=== PATIENT | female | born 1935 | race Caucasian/White ===

== ENCOUNTER 2016-04-10 12:17 | Observation (INO) | payer MEDICARE, BC ==
[2016-04-10] MEDS ORDERED: IPRATROPIUM/ALBUTEROL (0.5MG/3MG) NEB INH ONE (12:21)
--- NOTE | 2016-04-10 12:25 | Emergency Department Record ---
History of Present Illness - General Chief Complaint: Shortness of breath Stated Complaint: SOB Time Seen by Provider: 04/10/16 12:24 Source: Patient Mode of Arrival: Ambulatory Limitations: No limitations - History of Present Illness Initial Comments: The patient is here due to a 5 day hx of mild cough and worsening SOB. She denies any CP, back pain or pleuritic pain. The patient's daughter states the patient had pneumonia a few weeks ago and was treated for pneumonia by her PCP. She was doing better but then became worse 5 days ago. Her breathing is labored with walking and coughing. There has been no reported fever, chills, vomiting or diarrhea. MD Complaint: Shortness of breath Onset/Timin -: Days(s) Severity: Moderate Consistency: Constant Improves With: Nothing Worsens With: Nothing Known History Of: Recurrent pneumonia Associated Symptoms: Other Treatments Prior to Arrival: Other - Related Data Home Oxygen Therapy: No Home Medications Medication Instructions Recorded Confirmed Last Taken Atorvastatin Calcium [Lipitor] 10 mg PO DAILY 01/19/14 04/10/16 01/19/14 Donepezil HCl [Donepezil HCl] 10 mg PO QHS 01/19/14 04/10/16 01/19/14 Folic Acid [Folic Acid] 1 mg PO QHS 01/19/14 04/10/16 01/18/14 Memantine HCl [Namenda Xr] 28 mg PO QHS 01/19/14 04/10/16 01/18/14 Aspirin [Adult Low Dose Aspirin EC] 81 mg PO DAILY 04/10/16 04/10/16 Unknown Cholecalciferol (Vitamin D3) 2,000 unit PO DAILY 04/10/16 04/10/16 Unknown [Vitamin D3] Tiotropium [place] [Spiriva] 1 cap IH DAILY 04/10/16 04/10/16 Unknown Allergies Allergy/AdvReac Type Severity Reaction Status Date / Time No Known Drug Allergies Allergy Verified 04/10/16 12:25 Travel Screening - Travel/Exposure Within Last 30 Days Have you traveled within the last 30 days?: No Review of Systems Constitutional: Denies: Chills, Fever Eyes: Denies: Eye discharge ENT: Denies: Congestion Respiratory: Reports: Cough, Dyspnea Cardiovascular: Denies: Arrhythmia, Chest pain Endocrine: Reports: Fatigue Gastrointestinal: Denies: Diarrhea, Vomiting Genitourinary: Denies: Dysuria Musculoskeletal: Denies: Back pain Skin: Denies: Bruising Past Medical History - SOCIAL HISTORY Smoking Status: Former smoker - RESPIRATORY Hx Respiratory Disorders: No - CARDIOVASCULAR Hx Cardio Disorders: Yes Hx Hypertension: Yes - NEURO Hx Neuro Disorders: Yes Hx CVA: Yes Hx Dementia: Yes - GI Hx GI Disorders: No - Hx Genitourinary Disorders: No - ENDOCRINE Hx Endocrine Disorders: No - MUSCULOSKELETAL Hx Musculoskeletal Disorders: No - PSYCH Hx Psych Problems: Yes Hx Behavior Problems: Yes - HEMATOLOGY/ONCOLOGY Hx Hematology/Oncology Disorders: No Physical Exam - General General Appearance: Alert, Cooperative, No acute distress - Head Head exam: Atraumatic, Normocephalic, Normal inspection - Eye Eye exam: Normal appearance, PERRL - ENT Throat exam: Normal inspection. negative: Tonsillar erythema, Tonsillar exudate - Neck Neck exam: Normal inspection, Full ROM. negative: Tenderness - Respiratory Respiratory exam: Decreased breath sounds, Rhonchi (at the bases.). negative: Normal lung sounds bilaterally - Cardiovascular Cardiovascular Exam: Regular rate, Normal rhythm, Normal heart sounds - GI/Abdominal GI/Abdominal exam: Soft, Normal bowel sounds. negative: Tenderness - Extremities Extremities exam: Normal inspection, Full ROM, Normal capillary refill. negative: Tenderness - Neurological Neurological exam: Normal gait. negative: Abnormal gait, Motor sensory deficit Course Vital Signs 04/10/16 12:19 Temperature 98.0 F Pulse Rate 82 Respiratory 20 Rate Blood Pressure 182/86 Pulse Ox 86 L - Reevaluation(s) Reevaluation #1: The patient is doing better but is still winded with walking. Her O2 sats due dip to 89-90% with ambulation and the patient became winded with just walking a short distance. On exam her lungs do have mild to moderate wheezes. Due to that fact we will admit the patient overnight for OBS. I did discuss the case with Dr. Barrios and he accepts the admission. 04/10/16 14:21 Medical Decision Making - Data Complexity MDM Data: Labs Ordered and/or Reviewed, X-Ray Ordered and/or Reviewed, EKG Ordered and/or Reviewed - Lab Data Result diagrams: 04/10/16 12:32 04/10/16 12:32 - EKG Data -: EKG Interpreted by Me (NSR at 77, Nonspecific T changes anterior leads.) - Radiology Data Radiology results: Report reviewed (CXR: Neg per Rad.) Disposition Disposition: Admit Clinical Impression: Obstructive Chronic Bronchitis With Exacerbation Disposition: Still a Patient at [facility] Decision to Admit: Admit from ER Decision to Admit Date: 04/10/16 Decision to Admit Time: 14:29 Accepting Physician: Sophie Time Discussed w/Accepting Physician: 14:29 Condition: (2) Stable Forms: Patient Portal Access Time of Disposition: 14:29
[2016-04-10] MEDS ORDERED: LEVALBUTEROL HCL 1.25 MG/3 ML INH ONE ×2 (12:28→13:12)
[2016-04-10] MEDS ORDERED: METHYLPREDNISOLONE PF 125MG/VIAL IVP ONE (12:39)
[2016-04-10 12:46] LABS: BASO % 0.4 % (0-6); EOS % 1.6 % (0-6); GRAN % 67.5 % (47-80); HEMATOCRIT 44.5 % (35.0-47.0); HEMOGLOBIN 14.5 gm/dl (11.6-16.0); LYMPH % 23.2 % (16-45); MEAN CELL VOLUME 94.5 fl (81-97); MEAN CORPUSCULAR HEMOGLOBIN 30.8 pg (27-33); MEAN CORPUSCULAR HGB CONC 32.6 g/dl (32-36); MEAN PLATELET VOLUME 9.6 fl (7.4-10.4); MONO % 7.3 % (0-9); PLATELET COUNT 243 K/uL (130-400); RED BLOOD COUNT 4.71 M/uL (3.80-5.40); RED CELL DISTRIBUTION WIDTH 12.4 % (11.5-14.5); WHITE BLOOD COUNT W/O DIFF 7.7 K/uL (4.2-12.2)
[2016-04-10 12:57] LABS: ANION GAP 15.7 (7-16); BLOOD UREA NITROGEN 14 mg/dL (7-17); CARBON DIOXIDE 27.3 mmol/L (22-30); CREATINE PHOSPHOKINASE 44 U/L (30-135); CREATININE 0.7 mg/dL (0.52-1.04); EST GLOMERULAR FILTRATION RATE > 60 ml/min; GLUCOSE,RANDOM 108 mg/dL (70-110)
[2016-04-10 12:59] LABS: INR 0.98; PARTIAL THROMBOPLASTIN TIME 24.9 SECONDS (24.5-39.1); PROTHROMBIN TIME (PATIENT) 11.1 SECONDS (9.5-12.1)
[2016-04-10 13:10] LABS: CKMB 1.2 ug/L (0-6); TROPONIN I < 0.012 ng/mL (0.00-0.034)
[2016-04-10] MEDS ORDERED: AZITHROMYCIN 500 MG in 0.9 % SODIUM CHLORIDE 250ML 250 ML IVPB ONE (14:27)
[2016-04-10] MEDS ORDERED: IPRATROPIUM/ALBUTEROL (0.5MG/3MG) NEB INH PRN (16:25)
[2016-04-10] MEDS ORDERED: ACETAMINOPHEN 500 MG TABLET PO PRN (16:25)
[2016-04-10] MEDS ORDERED: FOLIC ACID 1 MG TABLET PO SCH (22:00)
[2016-04-10] MEDS ORDERED: Non-Formulary MISC (Donepezil Hcl [Donepezil Hcl] 10 MG) PO SCH (22:00)
[2016-04-10] MEDS ORDERED: MEMANTINE HCL 28 MG PO SCH (22:00)
[2016-04-10] MEDS: Non-Formulary MISC (Atorvastatin Calcium [Lipitor] 10 MG) PO SCH (22:26)
--- NOTE | 2016-04-11 08:49 | History and Physical Report ---
DATE OF DICTATION: 04/10/2016 at 5:38 p.m. CHIEF COMPLAINT: Dyspnea. HISTORY OF PRESENT ILLNESS: This 80-year-old female presented to the emergency department and was evaluated by Dr. Yoder. She was admitted to the hospital because of dyspnea and exacerbation of chronic obstructive pulmonary disease. Chest x-ray was negative. She had some low pulse oximetry measurements when she first came into the emergency department of 89 to 90. It also dropped down to 89 to 90 when ambulating on room air in the emergency department. Dr. Yoder was uncomfortable sending her home at that point. PAST MEDICAL HISTORY: The patient has a history of chronic obstructive pulmonary disease. She stopped smoking many years ago. She also has a history of Alzheimer's type dementia, hypercholesterolemia. She also has hypertension, transient ischemic attack, cerebrovascular accident. PAST SURGICAL HISTORY: Breast biopsy. MEDICATIONS ON ADMISSION: Spiriva one capsule daily, Vitamin D3 2,000 units daily, aspirin 81 mg q. daily, Namenda XR 28 mg q. daily, folic acid one q. daily, Aricept 10 mg at h.s., and Lipitor 10 mg q. daily. ALLERGIES: No known drug allergies. FAMILY/PSYCHOSOCIAL HISTORY: Unremarkable. REVIEW OF SYSTEMS: HEENT: She has some congestion and coughing which has been worse over the last two to three days. Cardiovascular: No chest pain, palpitations, or arrhythmias. Respiratory: She has a cough and is short of breath. Some wheezing. Gastrointestinal: No nausea, vomiting, diarrhea, black stools, or bloody stools. Genitourinary: No dysuria, hematuria, frequency, or burning on urination. Musculoskeletal: No joint or bone abnormalities, but she has diffuse arthritis. If I specifically ask her about a certain joint, she will complain about pain in the joint. Neurologic: Previous cerebrovascular accident and transient ischemic attack but no residual paralysis. Endocrine: No diabetes or thyroid disease. Integument: No rash, ulcers, changing moles, or yellow skin. PHYSICAL EXAMINATION: General: Height is 5 feet, 4 inches. Weight is 119 pounds. Vital Signs: Temperature is 99.0, pulse is 86, blood pressure is 120/66, pulse oximetry is 97% on two liters per nasal cannula. Her respiratory rate is 18. HEENT: Pupils are equal, round, and reactive to light and accommodation. Extraocular muscles are intact. The throat is clear. The nose is clear. The tympanic membranes are garay. Neck: The neck is supple. No jugular venous distension. No hepatojugular reflex. No carotid bruit. The thyroid is smooth. Cardiovascular: Regular rate and rhythm without murmurs, clicks, rubs, or gallops. Respiratory: Clear to auscultation and percussion. There is some scant wheezing bilaterally, but she is content on two liters of 02. Abdomen: Soft and nontender. No hepatosplenomegaly. No masses. No tenderness. Bowel sounds are active. No bruit. Extremities: No pitting edema. No cyanosis. No clubbing. Full range of motion. Peripheral pulses are good. Breasts, Gynecological, and Rectal Examinations: Deferred. Neurological Examination: Cranial nerves II through XII are intact. No gross defect. Sensation is normal. Strength is normal. Deep tendon reflexes are equal bilaterally. Babinski is negative. Mental Status: She is alert but oriented to person only; not place or time. IMPRESSIONS: 1. Acute bronchitis. 2. Acute exacerbation of chronic obstructive pulmonary disease. 3. Alzheimer's type dementia. 4. Hypercholesterolemia. 5. A history of hypertension, but she is no longer on hypertensive medications. PLAN: Intravenous azithromycin once a day. DuoNeb treatments q. four hours while awake and p.r.n. Continue her home medications. Solu Medrol 60 mg intravenous q. daily. Julio C Barrios D.O. Date Time JOB NUMBER: [id number] MTDD
--- NOTE | 2016-04-11 09:15 | RADIOLOGY REPORT ---
EXAM: CHEST, TWO VIEWS HISTORY: SHORTNESS OF BREATH, PNEUMONIA THREE WEEKS AGO. TECHNIQUE: Two views of the chest were obtained. Comparison: Chest x-ray 07/07/08. FINDINGS: The lungs are clear. The cardiomediastinal silhouette is not enlarged. Chronic elevation of the right hemidiaphragm. The osseous structures are unremarkable. IMPRESSION: NO ACUTE INTRATHORACIC PROCESS. JOB NUMBER: [id number] MTDD
[2016-04-11 09:27] LABS: CKMB 2.1 ug/L (0-6)
[2016-04-11 09:31] LABS: TROPONIN I < 0.012 ng/mL (0.00-0.034)
--- NOTE | 2016-04-11 09:44 | Discharge Note ---
Discharge Note - Date Date of Discharge Note: 04/11/16 Disposition: Home, Self-Care Condition: (1) Good Additional Instructions: follow up with Dr. Silver in 3-5 days Prescriptions: Albuterol Sulfate [Proair Hfa] 1 - 2 puff IH .EVERY 4-6 HOURS PRN #1 inhaler PRN Reason: Difficulty In Breathing Azithromycin [Zithromax] 250 mg PO DAILY #6 tab Forms: Patient Portal Access
[2016-04-11] MEDS: Non-Formulary MISC (Atorvastatin Calcium [Lipitor] 10 MG) PO SCH (09:54)
[2016-04-11] MEDS ORDERED: METHYLPREDNISOLONE PF 125MG/VIAL IVP SCH (10:00)
[2016-04-11] MEDS ORDERED: ASPIRIN 81 MG TABEC PO SCH (10:00)
--- NOTE | 2016-04-11 11:23 | Discharge Summary ---
DATE OF DISCHARGE: 04/11/2015. DISCHARGE DIAGNOSES: 1. Acute bronchitis. 2. Acute exacerbation of chronic obstructive pulmonary disease. 3. Alzheimer's type dementia. 4. Hypercholesterolemia. 5. Hypertension, but she is no longer on hypertensive medication. ATTENDING PHYSICIAN: Julio C Barrios D.O. REASON FOR HOSPITALIZATION: Dyspnea. HISTORY OF THE PRESENT ILLNESS: This 80-year-old female presented to the emergency department. She was evaluated by Dr. Yoder and was admitted to the hospital because of dyspnea and exacerbation of chronic obstructive pulmonary disease. Chest x-ray was negative. There was one reading with a low pulse oximetry initially when she came into the emergency room at 89 to 90. Currently she has had normal pulse oximetry readings since the admission and has not required any breathing treatments at all since admission from the emergency department. She was placed in the hospital for further evaluation. The patient had an episode of confusion because of her dementia during the night. Nursing had a hard time with that. However, she settled down after she woke up. SIGNIFICANT FINDINGS: Chest x-ray was negative. LABORATORY DATA: White blood cell count was 7,700, hemoglobin was 14.5. She had two sets of cardiac enzymes which were negative. Potassium was 4.4. DIAGNOSTIC DATA: EKG showed no acute changes. THERAPY PROVIDED: She had one dose of azithromycin intravenous, Solu Medrol 125 , and oxygen therapy. Breathing treatments were ordered, but she did not require any. The admission was changed to an observation admission, and she was sent home to follow up with Dr. Silver. DISCHARGE INSTRUCTIONS: 1. Follow up with Dr. Silver in three to five days. 2. Albuterol two puffs q. four hours p.r.n. 3. Z-Roberto Carlos one a day. She already had the loading dose in the hospital. 4. Continue her home medications including: Spiriva once a day, Vitamin D3 2, 000 units daily, aspirin 81 mg q. daily, Namenda XR 28 mg q. daily, folic acid one a day, Aricept 10 mg q. daily, and Lipitor 10 mg q. daily. Julio C A Sophie, D.O. Date Time JOB NUMBER: [id number] cc: Nilda Clarke
[2016-04-11] MEDS ORDERED: AZITHROMYCIN 250 MG in 0.9 % SODIUM CHLORIDE 250ML 250 ML IVPB SCH (14:45)
[2016-04-11] MEDS ORDERED: DONEPEZIL HCL 5 MG TABLET PO SCH (22:00)
== END 2016-04-11 11:10 | disposition home or self-care (01) ==
LOC: ER 12:17 → MEDSURG 14:57 → INTOOBSV 15:00
PROVIDERS: ADMIT Emergency Medicine; ATTEND Emergency Medicine
DX: J44.0 Chronic obstructive pulmonary disease with (acute) lower respiratory infection (principal); G30.9 Alzheimer's disease, unspecified; F02.80 Dementia in other diseases classified elsewhere, unspecified severity, without behavioral disturbance, psychotic disturbance, mood disturbance, and anxiety; E78.00 Pure hypercholesterolemia, unspecified
CPT/HCPCS: 99285 ×2; 94760 ×2; 96365; 96375; 82550; 85025; 85730; 85610; 82553 ×2; 84484 ×2; 80048; 83880; 71020; 94640 ×2; 94761; 93005; 93010; G0378 ×2; 99217; 99220; J0456; J2930; J7050

== ENCOUNTER 2016-06-16 11:30 | Inpatient (IN) | payer MEDICARE, BC ==
[2016-06-16] MEDS ORDERED: IPRATROPIUM/ALBUTEROL (0.5MG/3MG) NEB INH ONE ×2 (11:53→11:54)
[2016-06-16] MEDS ORDERED: METHYLPREDNISOLONE PF 125MG/VIAL IVP SCH (12:00)
--- NOTE | 2016-06-16 12:01 | Emergency Department Record ---
History of Present Illness - General Chief Complaint: Shortness of breath Stated Complaint: COUGH,SOB Time Seen by Provider: 06/16/16 11:42 Source: Patient, Family Mode of Arrival: Wheelchair Limitations: No limitations - History of Present Illness Initial Comments: 81 yo female with a prior history of COPD and pneumonia presents with a cough since last . The cough is non productive. She was waiting to see her doctor on Thursday but he was unable to get an appointment. She has been short of breath with activity. No nausea, vomiting or diarrhea. She reports that she was admitted in March with similar symptoms. She is a former smoker who quit many years ago. MD Complaint: Cough Onset/Timin -: Days(s) Severity: Moderate Consistency: Intermittent Improves With: Medication Worsens With: Exertion Known History Of: COPD, Other Context: Recent illness, Recent URI Associated Symptoms: Cough, Sputum production Treatment Prior to Arrival Comment:: Spiriva, Proair - Related Data Home Oxygen Therapy: No Home Medications Medication Instructions Recorded Confirmed Last Taken Atorvastatin Calcium [Lipitor] 10 mg PO DAILY 01/19/14 06/16/16 04/09/16 Donepezil HCl 10 mg PO QHS 01/19/14 06/16/16 04/09/16 Folic Acid 1 mg PO QHS 01/19/14 06/16/16 04/09/16 Memantine HCl [Namenda Xr] 28 mg PO QHS 01/19/14 06/16/16 04/09/16 Aspirin [Adult Low Dose Aspirin EC] 81 mg PO DAILY 04/10/16 06/16/16 04/10/16 Cholecalciferol (Vitamin D3) 2,000 unit PO DAILY 04/10/16 06/16/16 04/10/16 [Vitamin D3] Tiotropium [place] [Spiriva] 1 cap IH DAILY 04/10/16 06/16/16 06/15/16 11:00 Previous Rx's Medication Instructions Recorded Albuterol Sulfate [Proair Hfa] 1 - 2 puff IH .EVERY 4-6 HOURS PRN 04/11/16 #1 inhaler Allergies Allergy/AdvReac Type Severity Reaction Status Date / Time No Known Drug Allergies Allergy Verified 06/16/16 11:39 Travel Screening - Travel/Exposure Within Last 30 Days Have you traveled within the last 30 days?: No Review of Systems Constitutional: Reports: Chills, Fever, Malaise Eyes: Denies: Eye discharge, Eye pain, Photophobia, Vision change ENT: Denies: Congestion Respiratory: Reports: Cough, Wheezes Cardiovascular: Denies: Chest pain, Palpitations, Syncope Endocrine: Denies: Fatigue, Polydipsia, Polyuria Gastrointestinal: Denies: Abdominal pain, Diarrhea, Nausea, Vomiting Genitourinary: Denies: Dyspareunia, Dysuria, Urgency Musculoskeletal: Denies: Arthralgia, Back pain, Joint swelling, Myalgia, Neck pain Skin: Denies: Bruising, Change in color, Rash Neurological: Denies: Confusion, Headache Psychiatric: Denies: Anxiety Hematological/Lymphatic: Denies: Blood Clots, Easy bleeding, Easy bruising, Swollen glands Past Medical History - SOCIAL HISTORY Smoking Status: Former smoker Alcohol Use: None Drug Use: None - RESPIRATORY Hx Respiratory Disorders: No Hx Bronchitis: Yes Hx COPD: Yes Hx Pneumonia: Yes - CARDIOVASCULAR Hx Cardio Disorders: Yes Hx Hypertension: Yes - NEURO Hx Neuro Disorders: Yes Hx CVA: Yes Hx Dementia: Yes - GI Hx GI Disorders: No - Hx Genitourinary Disorders: No - ENDOCRINE Hx Endocrine Disorders: No - MUSCULOSKELETAL Hx Musculoskeletal Disorders: No - PSYCH Hx Psych Problems: Yes Hx Behavior Problems: Yes - HEMATOLOGY/ONCOLOGY Hx Hematology/Oncology Disorders: No Family Medical History Any Significant Family History?: No Physical Exam - General General Appearance: Alert, Oriented x3, Cooperative, Mild distress (mildly labored breathing) Limitations: No limitations - Head Head exam: Normal inspection - Eye Eye exam: Normal appearance, PERRL. negative: Conjunctival injection - ENT ENT exam: Normal exam, Mucous membranes moist Ear exam: Normal external inspection Nasal Exam: Normal inspection Mouth exam: Normal external inspection Teeth exam: Normal inspection Throat exam: Normal inspection - Neck Neck exam: Normal inspection, Full ROM. negative: Tenderness - Respiratory Respiratory exam: Decreased breath sounds, Prolonged expiratory, Rhonchi, Wheezes. negative: Respiratory distress - Cardiovascular Cardiovascular Exam: Regular rate, Normal rhythm, Normal heart sounds - GI/Abdominal GI/Abdominal exam: Soft. negative: Distended, Tenderness - Rectal Rectal exam: Deferred - exam: Deferred - Extremities Extremities exam: Normal inspection, Full ROM, Normal capillary refill. negative: Tenderness - Back Back exam: Reports: Normal inspection, Full ROM. Denies: CVA tenderness (R), CVA tenderness (L), Muscle spasm, Paraspinal tenderness, Rash noted, Tenderness , Vertebral tenderness - Neurological Neurological exam: Alert, Normal gait, Oriented X3 - Psychiatric Psychiatric exam: Normal affect, Normal mood - Skin Skin exam: Dry, Intact, Normal color, Warm Course Vital Signs 06/16/16 06/16/16 11:31 11:49 Temperature 98.8 F Pulse Rate 88 Pulse Rate [ 87 Tablet Technician ] Respiratory 48 H 26 H Rate Blood Pressure 124/72 Pulse Ox 83 L 97 - Reevaluation(s) Reevaluation #1: The labs were reviewed The patient is Influenza B positive She will be given Tamiflu 06/16/16 12:53 Reevaluation #2: The CXR is negative for acute process Due to her hypoxia from the Influenza B and her underlying COPD she will be admitted for supportive respiratory care and monitoring. 06/16/16 13:12 Medical Decision Making - Lab Data Result diagrams: 06/16/16 11:50 06/16/16 11:50 Disposition Disposition: Admit Clinical Impression: COPD exacerbation, Influenza due to influenza virus, type B, Hypoxia Disposition: Still a Patient at [facility] Decision to Admit: Admit from ER Decision to Admit Date: 06/16/16 Decision to Admit Time: 13:16 Condition: (2) Stable Forms: Patient Portal Access Time of Disposition: 13:16
[2016-06-16 12:32] LABS: BASO % 0.2 % (0-6); GRAN % 75.7 % (47-80); HEMATOCRIT 42.2 % (35.0-47.0); HEMOGLOBIN 13.8 gm/dl (11.6-16.0); MEAN CELL VOLUME 95.7 fl (81-97); MEAN CORPUSCULAR HEMOGLOBIN 31.3 pg (27-33); MEAN CORPUSCULAR HGB CONC 32.7 g/dl (32-36); MEAN PLATELET VOLUME 10.2 fl (7.4-10.4); MONO % 14.1 % (0-9); PLATELET COUNT 162 K/uL (130-400); RED BLOOD COUNT 4.41 M/uL (3.80-5.40); RED CELL DISTRIBUTION WIDTH 12.8 % (11.5-14.5); WHITE BLOOD COUNT W/O DIFF 5.2 K/uL (4.2-12.2)
[2016-06-16 12:43] LABS: ALB/GLOB RATIO 1.4 (1.1-1.8); ALBUMIN 4.3 gm/dL (3.5-5.0); ANION GAP 9.6 (7-16); BILIRUBIN,TOTAL 0.31 mg/dL (0.2-1.3); CARBON DIOXIDE 29.4 mmol/L (22-30); TOTAL PROTEIN 7.4 gm/dL (6.3-8.2)
[2016-06-16 12:45] LABS: INFLUENZA A NEGATIVE (NEGATIVE); INFLUENZA B POSITIVE (NEGATIVE)
[2016-06-16] MEDS ORDERED: OSTELTAMIVIR 75 MG CAP PO ONE (12:53)
[2016-06-16 12:55] LABS: TROPONIN I 0.028 ng/mL (0.00-0.034)
[2016-06-16] MEDS ORDERED: ACETAMINOPHEN 500 MG TABLET PO ONE (13:42)
[2016-06-16] MEDS ORDERED: IPRATROPIUM/ALBUTEROL (0.5MG/3MG) NEB INH SCH (14:23)
[2016-06-16] MEDS ORDERED: ALBUTEROL SULFATE (0.083%) 2.5 MG/3 ML NEB INH PRN (14:23)
[2016-06-16] MEDS ORDERED: 0.9 % SODIUM CHLORIDE 1000ML 1,000 ML IV PRN (14:23)
[2016-06-16] MEDS ORDERED: ACETAMINOPHEN 500 MG TABLET PO PRN (14:23)
[2016-06-16] MEDS ORDERED: PNEUM 13-VAL/PF 0.5 ML IM ONE (14:49)
[2016-06-16] MEDS: IPRATROPIUM/ALBUTEROL (0.5MG/3MG) NEB INH SCH ×3 (16:41→22:26)
--- NOTE | 2016-06-16 18:23 | History & Physical ---
History of Present Illness - Date of Service Date of Service for History & Physical: 06/16/16 - History of Present Illness Admitting Diagnosis: Influenza B, COPD, HYPOXIA History of Present Illness: 81 yo female admitted COPD exacerbation due to influenza B virus. PMHx of Alzheimer's type dementia, COPD, previous smoker (quit many years ago), high cholesterol, hypertension, TIA, CVA, and h/o PNA. History obtained from chart, patient and daughter at bedside. Per patient's daughter, patient has been experiencing a non productive cough. Onset was last . No aggravating symptoms. Alleviated by breathing treatment in the ED and supplemental O2. Associated symptoms include KINA w/ activity. Upon presentation to the ED, temp 98.8, HR 88, RR 48, BP 124/72, pulse ox 83 on RA. CBC normal. BUN 23, CE negative x1. Influenza B positive, CXR: NAP. IVF's , Duo neb treatment Q6 hours and albuterol Q1 hours ordered. Tamiflu ordered. Noting hypoxia and positive influenza B, patient admitted for further medical management. Patient sitting up in bed comfortably eating lunch with her daughter at bedside. States "i'm starving. She does not appear to be having any respiratory difficulty. +chills, fatigue. denies weakness, KINA, fever, nvd, abd pain, change in bowel habits, pain with urination, skin changes, sweating, or change in gait. Daughter denies any change in mentation. Admitted in March for COPD exacerbation. No other recent illness. no recent travel or sick contacts. Lives with her daughter here in [place]. Spiriva is on patient's medication list. Does not have a feather edger. PCP: Dr. Silver Travel Screening - Travel/Exposure Within Last 30 Days Have you traveled within the last 30 days?: No - Travel/Exposure Within Last Year Have you traveled outside the [place] in the last year?: No - Additonal Travel Details Have you been exposed to anyone with a communicable illness?: No - Travel Symptoms Symptom Screening: None Review of Systems Constitutional: Reports: Chills, Malaise. Denies: Fever Eyes: Denies: Eye discharge, Eye pain, Photophobia, Vision change ENT: Denies: Congestion Respiratory: Reports: Cough, Wheezes Cardiovascular: Denies: Chest pain, Palpitations, Syncope Endocrine: Denies: Fatigue, Polydipsia, Polyuria Gastrointestinal: Denies: Abdominal pain, Diarrhea, Nausea, Vomiting Genitourinary: Denies: Dyspareunia, Dysuria, Urgency Musculoskeletal: Denies: Arthralgia, Back pain, Joint swelling, Myalgia, Neck pain Skin: Denies: Bruising, Change in color, Rash Neurological: Denies: Confusion, Headache Psychiatric: Denies: Anxiety Hematological/Lymphatic: Denies: Blood Clots, Easy bleeding, Easy bruising, Swollen glands Past Medical History - SOCIAL HISTORY Smoking Status: Former smoker Alcohol Use: None Drug Use: None - RESPIRATORY Hx Respiratory Disorders: Yes Hx Bronchitis: Yes Hx COPD: Yes Hx Pneumonia: Yes - CARDIOVASCULAR Hx Cardio Disorders: Yes Hx Hypertension: Yes - NEURO Hx Neuro Disorders: Yes Hx CVA: Yes Hx Dementia: Yes - GI Hx GI Disorders: No - Hx Genitourinary Disorders: No - ENDOCRINE Hx Endocrine Disorders: No - MUSCULOSKELETAL Hx Musculoskeletal Disorders: No - PSYCH Hx Psych Problems: Yes Hx Anxiety: Yes Hx Behavior Problems: Yes Hx Depression: Yes - HEMATOLOGY/ONCOLOGY Hx Hematology/Oncology Disorders: No Family Medical History Any Significant Family History?: No H&P Meds/Allergies - Allergies Allergies: Allergies Allergy/AdvReac Type Severity Reaction Status Date / Time No Known Drug Allergies Allergy Verified 06/16/16 11:39 - Home Medications Home Medications Medication Instructions Recorded Confirmed Last Taken Atorvastatin Calcium [Lipitor] 10 mg PO DAILY 01/19/14 06/16/16 04/09/16 Donepezil HCl 10 mg PO QHS 01/19/14 06/16/16 04/09/16 Folic Acid 1 mg PO QHS 01/19/14 06/16/16 04/09/16 Memantine HCl [Namenda Xr] 28 mg PO QHS 01/19/14 06/16/16 04/09/16 Aspirin [Adult Low Dose Aspirin EC] 81 mg PO DAILY 04/10/16 06/16/16 04/10/16 Cholecalciferol (Vitamin D3) 2,000 unit PO DAILY 04/10/16 06/16/16 04/10/16 [Vitamin D3] Tiotropium [place] [Spiriva] 1 cap IH DAILY 04/10/16 06/16/16 06/15/16 11:00 Previous Rx's Medication Instructions Recorded Albuterol Sulfate [Proair Hfa] 1 - 2 puff IH .EVERY 4-6 HOURS PRN 04/11/16 #1 inhaler - Active Medications Active Medications: Current Medications Acetaminophen (Tylenol 500mg Tab) 1,000 mg PO Q6H PRN PRN Reason: PAIN/TEMP Albuterol Sulfate () 2.5 mg INH RESP.Q1H PRN PRN Reason: DIFFICULTY IN BREATHING Albuterol/Ipratropium (Duoneb) 3 ml INH RESP.Q6H.[facility] Last Admin: 06/16/16 16:41 Dose: 3 ml Aspirin (Ecotrin (Ec)) 81 mg PO DAILY [facility] Atorvastatin Calcium (Lipitor) 10 mg PO DAILY [facility] Oseltamivir Phosphate 30 mg/ (Marino Syrup 5 ml) 0 mg PO BID [facility] Donepezil HCl (Aricept) 10 mg PO QHS [facility] Enoxaparin Sodium (Lovenox) 40 mg SC DAILY [facility] Sodium Chloride () 1,000 mls @ 100 mls/hr IV .Q10H PRN PRN Reason: LARGE VOLUME IV Memantine (Namenda) 10 mg PO BID [facility] Methylprednisolone Sodium Succinate (Solu-Medrol) 60 mg IVP DAILY [facility] Physical Exam - Vital Signs Vital Signs: Vital Signs - Last 24 Hrs Temp Pulse Pulse Resp BP Pulse Ox 06/16/16 16:43 80 18 93 L 06/16/16 14:23 98.1 F 79 18 137/59 92 L - General General Appearance: Alert, Oriented x3, Cooperative, No acute distress Limitations: No limitations - Head Head exam: Normal inspection - Eye Eye exam: Normal appearance, PERRL. negative: Conjunctival injection - ENT ENT exam: Normal exam, Mucous membranes moist Ear exam: Normal external inspection Nasal Exam: Normal inspection Mouth exam: Normal external inspection Teeth exam: Normal inspection Throat exam: Normal inspection - Neck Neck exam: Normal inspection, Full ROM. negative: Tenderness - Respiratory Respiratory exam: Decreased breath sounds, Prolonged expiratory, Rhonchi, Wheezes. negative: Respiratory distress - Cardiovascular Cardiovascular Exam: Regular rate, Normal rhythm, Normal heart sounds - GI/Abdominal GI/Abdominal exam: Soft. negative: Distended, Tenderness - Rectal Rectal exam: Deferred - exam: Deferred - Extremities Extremities exam: Normal inspection, Full ROM, Normal capillary refill. negative: Tenderness - Back Back exam: Reports: Normal inspection, Full ROM. Denies: CVA tenderness (R), CVA tenderness (L), Muscle spasm, Paraspinal tenderness, Rash noted, Tenderness , Vertebral tenderness - Neurological Neurological exam: Alert, Normal gait, Oriented X3 - Psychiatric Psychiatric exam: Normal affect, Normal mood - Skin Skin exam: Dry, Intact, Normal color, Warm Results - Labs Result Diagrams: 06/16/16 11:50 06/16/16 11:50 VTE H&P Assessment - Risk for VTE Risk for VTE: Yes Risk Level: Moderate (age, decreased mobility) Risk Assessment Date: 06/16/16 Risk Assessment Time: 14:00 VTE Orders Placed or Will Be Placed: Yes Plan - Inpatient Certification Inpatient Certification: Admit to inpatient care: Based on my medical assessment, after consideration of patient's risk factors (age, co-morbidities and patient presenting symptoms and acuity), I expect that this patient will remain in the hospital greater than or equal to two midnights and that the services needed warrant inpatient care because: Patient Risk Factors: [hypoxia, difficulty in breathing, fever, sob w/ ambulation] Estimated length of stay: [2-3 nights] The patient may reasonably be expected to be discharged or transferred to a hospital within 96 hours after admission to [facility]. Services needed: [respiratory therapy, IVF's, respiratory medications, supplemental oxygen, monitoring] Post hospital care (if known): [home, family assistance] I certify that my determination is in accordance with my understanding of Medicare requirements for reasonable and necessary inpatient services. 06/16/16 18:54 - Detailed Diagnosis and Plan (1) COPD exacerbation Current Visit: Yes Status: Acute Base Code: J44.1 - CHRONIC OBSTRUCTIVE PULMONARY DISEASE W (ACUTE) EXACERBATION Comment: 06/16/16: 81 yo female w/ alzheimers type dementia admitted for COPD exac w/ positive influenza B. H/o COPD, previous smoker and hx of PNA. CXR NAP. WBC normal. afebrile. Oxygen saturation is 93 % on 2L's NC. - resp medications: duo neb breathing treatments Q6 hours PRN, albuterol Q 1-2 hours PRN, Tamiflu 30 mg BID, Solu medrol 60 mg IV daily (125 mg IV administered in the ED). - supplemental O2 - monitor VS's Q 8 hours. (2) Influenza B Current Visit: Yes Status: Acute Base Code: J10.1 - FLU DUE TO OTH IDENT INFLUENZA VIRUS W OTH RESP MANIFEST Comment: 06/16/16: Tamiflu 30 mg BID (GFR <60). 75 mg administered in the ED. (3) Alzheimer's dementia Current Visit: Yes Status: Acute Base Code: G30.9 - ALZHEIMER'S DISEASE, UNSPECIFIED Comment: 06/16/16: mentation at baseline per daughter. continue home medication. (4) DVT prophylaxis Current Visit: Yes Status: Acute Base Code: [id number] - Comment: 06/16/16: age, decreased mobility. lovenox 40 mg sq daily. (5) Full code status Current Visit: Yes Status: Acute Base Code: Z78.9 - OTHER SPECIFIED HEALTH STATUS Comment: 06/16/16: patient is full code
[2016-06-16] MEDS: DONEPEZIL HCL 5 MG TABLET PO SCH (21:01)
[2016-06-16] MEDS: MEMANTINE HCL 10 MG TABLET PO SCH (21:01)
[2016-06-16] MEDS: OSELTAMIVIR PHOSPHATE 30 MG, CHERRY SYRUP 5 ML PO SCH ×2 (21:02)
[2016-06-16] MEDS ORDERED: OSTELTAMIVIR 75 MG CAP PO SCH (22:00)
[2016-06-17] MEDS: IPRATROPIUM/ALBUTEROL (0.5MG/3MG) NEB INH SCH ×4 (05:32→23:00)
[2016-06-17 06:51] LABS: ANION GAP 9.2 (7-16); BLOOD UREA NITROGEN 23 mg/dL (7-17); CARBON DIOXIDE 27.8 mmol/L (22-30); CREATININE 0.9 mg/dL (0.52-1.04); EST GLOMERULAR FILTRATION RATE > 60 ml/min; GLUCOSE,RANDOM 140 mg/dL (70-110)
--- NOTE | 2016-06-17 07:33 | RADIOLOGY REPORT ---
EXAM: CHEST, TWO VIEWS HISTORY: PRODUCTIVE COUGH WITH SLIGHT CHEST PAIN AND SHORTNESS OF BREATH FOR FOUR DAYS. TECHNIQUE: Upright PA and lateral views of the chest were obtained. Comparison: Two view chest radiographic examination dated 07/07/08. FINDINGS: The heart is not enlarged and the pulmonary vasculature is nondilated. The aortic knob is atherosclerotic. Moderate elevation of the right hemidiaphragm is redemonstrated. No convincing new area of abnormally increased or decreased attenuation is noted throughout the brain substance. The previously demonstrated right basilar air space disease has cleared. No pneumothorax. There are degenerative changes of the visualized spine and shoulder girdles. IMPRESSION: MODERATE ELEVATION OF THE RIGHT HEMIDIAPHRAGM REDEMONSTRATED. NO CONVINCING EVIDENCE OF ACUTE CARDIOPULMONARY DISEASE. JOB NUMBER: [id number] [facility]
[2016-06-17] MEDS: MEMANTINE HCL 10 MG TABLET PO SCH ×2 (09:08→21:27)
[2016-06-17] MEDS: ATORVASTATIN 20 MG TABLET PO SCH (09:10)
[2016-06-17] MEDS: METHYLPREDNISOLONE PF 125MG/VIAL IVP SCH (09:11)
[2016-06-17] MEDS: ENOXAPARIN 40 MG/0.4 ML SYR SC SCH (09:11)
[2016-06-17] MEDS: ASPIRIN 81 MG TABEC PO SCH (09:11)
[2016-06-17] MEDS: OSELTAMIVIR PHOSPHATE 30 MG, CHERRY SYRUP 5 ML PO SCH ×4 (09:12→21:35)
[2016-06-17] MEDS ORDERED: METHYLPREDNISOLONE PF 125MG/VIAL IVP SCH (10:00)
[2016-06-17] MEDS: DONEPEZIL HCL 5 MG TABLET PO SCH (21:26)
--- NOTE | 2016-06-17 21:52 | Physician Progress Note ---
Subjective - Date Date of Physician Progress Note: 06/17/16 - Subjective Subjective Comment: Patient is pleasantly confused. Denies any concerns, reports is feeling "fine". Daughter in room with patient in whom she resides with, reports mentation is at baseline, does not wear oxygen at home. Feels mother is doing much better today. Objective - Vital Signs Vital Signs: Vital Signs - Last 24 Hrs Temp Pulse Pulse Resp BP BP Pulse Ox 06/17/16 18:29 90 20 92 L 06/17/16 18:00 98.5 F 88 20 127/58 92 L 06/17/16 11:37 98.7 F 112/66 06/17/16 10:00 98.1 F 90 20 122/59 92 L 06/17/16 09:00 67 20 06/17/16 06:00 98.7 F 67 20 112/66 94 L 06/17/16 05:32 92 H 22 94 L 06/16/16 22:27 60 20 91 L - General General Appearance: Alert (oriented to self and daughter only), Cooperative, No acute distress Limitations: No limitations - Head Head exam: Normal inspection - Eye Eye exam: Normal appearance, PERRL. negative: Conjunctival injection - ENT ENT exam: Normal exam, Mucous membranes moist Ear exam: Normal external inspection Nasal Exam: Normal inspection Mouth exam: Normal external inspection Teeth exam: Normal inspection Throat exam: Normal inspection - Neck Neck exam: Normal inspection, Full ROM. negative: Tenderness - Respiratory Respiratory exam: Decreased breath sounds. negative: Respiratory distress - Cardiovascular Cardiovascular Exam: Regular rate, Normal rhythm, Normal heart sounds - GI/Abdominal GI/Abdominal exam: Soft. negative: Distended, Tenderness - Rectal Rectal exam: Deferred - exam: Deferred - Extremities Extremities exam: Normal inspection, Full ROM, Normal capillary refill. negative: Tenderness - Back Back exam: Reports: Normal inspection, Full ROM. Denies: CVA tenderness (R), CVA tenderness (L), Muscle spasm, Paraspinal tenderness, Rash noted, Tenderness , Vertebral tenderness - Neurological Neurological exam: Alert, Normal gait, Oriented X3 - Psychiatric Psychiatric exam: Normal affect, Normal mood - Skin Skin exam: Dry, Intact, Normal color, Warm Assessment and Plan - Assessment and Plan (1) COPD exacerbation Current Visit: Yes Status: Acute Base Code: J44.1 - CHRONIC OBSTRUCTIVE PULMONARY DISEASE W (ACUTE) EXACERBATION Comment: 06/16/16: 81 yo female w/ alzheimers type dementia admitted for COPD exac w/ positive influenza B. H/o COPD, previous smoker and hx of PNA. CXR NAP. WBC normal. afebrile. Oxygen saturation is 93 % on 2L's NC. - resp medications: duo neb breathing treatments Q6 hours PRN, albuterol Q 1-2 hours PRN, Tamiflu 30 mg BID, Solu medrol 60 mg IV daily (125 mg IV administered in the ED). - supplemental O2 - monitor VS's Q 8 hours. - Plan on discharge tomorrow - home O2 qualifier prior to dischage - follow up PCP 2 weeks after discharge (2) Influenza B Current Visit: Yes Status: Acute Base Code: J10.1 - FLU DUE TO OTH IDENT INFLUENZA VIRUS W OTH RESP MANIFEST Comment: 06/17/16: Tamiflu 30 mg BID (GFR <60). 75 mg administered in the ED. - will continue Tamiflu 30mg BID for total 5 day treatment (3) Alzheimer's dementia Current Visit: Yes Status: Acute Base Code: G30.9 - ALZHEIMER'S DISEASE, UNSPECIFIED Comment: 06/17/16: mentation at baseline per daughter. continue home medication. (4) DVT prophylaxis Current Visit: Yes Status: Acute Base Code: [id number] - Comment: 06/17/16: age, decreased mobility. lovenox 40 mg sq daily. (5) Full code status Current Visit: Yes Status: Acute Base Code: Z78.9 - OTHER SPECIFIED HEALTH STATUS Comment: 06/17/16: patient is full code Results - Labs Result Diagrams: 06/16/16 11:50 06/17/16 06:20 Labs Last 24 Hours: Laboratory Results - last 24 hr 06/17/16 06:20 Sodium 136 Potassium 3.5 Chloride 99 Carbon Dioxide 27.8 Anion Gap 9.2 BUN 23 H Creatinine 0.9 Estimated GFR > 60 Random Glucose 140 H Calcium 8.4 L DVT/PE Assessment - Risk for VTE Risk for VTE: No Risk Level: Moderate (age, decreased mobility) Risk Assessment Date: 06/16/16 Risk Assessment Time: 14:00 VTE Orders Placed or Will Be Placed: Yes - Active Medicaitons Current Medications: Current Medications Acetaminophen (Tylenol 500mg Tab) 1,000 mg PO Q6H PRN PRN Reason: PAIN/TEMP Albuterol Sulfate () 2.5 mg INH RESP.Q1H PRN PRN Reason: DIFFICULTY IN BREATHING Albuterol/Ipratropium (Duoneb) 3 ml INH RESP.Q6H.WA [facility] Last Admin: 06/17/16 18:25 Dose: 3 ml Aspirin (Ecotrin (Ec)) 81 mg PO DAILY [facility] Last Admin: 06/17/16 09:11 Dose: 81 mg Atorvastatin Calcium (Lipitor) 10 mg PO DAILY [facility] Last Admin: 06/17/16 09:10 Dose: 10 mg Oseltamivir Phosphate 30 mg/ (Marino Syrup 5 ml) 0 mg PO BID [facility] Last Admin: 06/17/16 21:35 Dose: 5 liquid Donepezil HCl (Aricept) 10 mg PO QHS [facility] Last Admin: 06/17/16 21:26 Dose: 10 mg Enoxaparin Sodium (Lovenox) 40 mg SC DAILY [facility] Last Admin: 06/17/16 09:11 Dose: 40 mg Sodium Chloride () 1,000 mls @ 100 mls/hr IV .Q10H PRN PRN Reason: LARGE VOLUME IV Memantine (Namenda) 10 mg PO BID [facility] Last Admin: 06/17/16 21:27 Dose: 10 mg Methylprednisolone Sodium Succinate (Solu-Medrol) 60 mg IVP DAILY [facility] Last Admin: 06/17/16 09:11 Dose: 60 mg AMI Plan - Labs Result Diagrams: 06/16/16 11:50 06/17/16 06:20
[2016-06-18] MEDS: IPRATROPIUM/ALBUTEROL (0.5MG/3MG) NEB INH SCH ×2 (05:00→10:05)
[2016-06-18] MEDS: ATORVASTATIN 20 MG TABLET PO SCH (09:55)
[2016-06-18] MEDS: ASPIRIN 81 MG TABEC PO SCH (09:55)
[2016-06-18] MEDS: MEMANTINE HCL 10 MG TABLET PO SCH (09:56)
[2016-06-18] MEDS: ENOXAPARIN 40 MG/0.4 ML SYR SC SCH (09:56)
[2016-06-18] MEDS: OSELTAMIVIR PHOSPHATE 30 MG, CHERRY SYRUP 5 ML PO SCH ×2 (09:58)
--- NOTE | 2016-06-18 10:46 | Discharge Summary ---
Providers Discharge Summary Date: 06/18/16 Date of admission: 06/16/16 14:00 Attending physician: EVON CORONEL Primary care physician: BURTON WILLIS D.O. Physical Exam - Vital Signs Vital Signs: Vital Signs - Last 24 Hrs Temp Pulse Pulse Resp BP BP Pulse Ox 06/18/16 10:05 95 H 20 93 L 06/17/16 23:49 98.7 F 82 20 136/59 95 06/17/16 18:29 90 20 92 L 06/17/16 18:00 98.5 F 88 20 127/58 92 L 06/17/16 11:37 98.7 F 112/66 - General General Appearance: Alert (oriented to self and daughter only), Cooperative, No acute distress Limitations: No limitations - Head Head exam: Normal inspection - Eye Eye exam: Normal appearance, PERRL. negative: Conjunctival injection - ENT ENT exam: Normal exam, Mucous membranes moist Ear exam: Normal external inspection Nasal Exam: Normal inspection Mouth exam: Normal external inspection Teeth exam: Normal inspection Throat exam: Normal inspection - Neck Neck exam: Normal inspection, Full ROM. negative: Tenderness - Respiratory Respiratory exam: Decreased breath sounds. negative: Respiratory distress - Cardiovascular Cardiovascular Exam: Regular rate, Normal rhythm, Normal heart sounds - GI/Abdominal GI/Abdominal exam: Soft. negative: Distended, Tenderness - Rectal Rectal exam: Deferred - exam: Deferred - Extremities Extremities exam: Normal inspection, Full ROM, Normal capillary refill. negative: Tenderness - Back Back exam: Reports: Normal inspection, Full ROM. Denies: CVA tenderness (R), CVA tenderness (L), Muscle spasm, Paraspinal tenderness, Rash noted, Tenderness , Vertebral tenderness - Neurological Neurological exam: Alert, Normal gait, Oriented X3 - Psychiatric Psychiatric exam: Normal affect, Normal mood - Skin Skin exam: Dry, Intact, Normal color, Warm Hospitalization - Hospitalization Admission Diagnosis: Influenza B, COPD, HYPOXIA - Problem List/Discharge Diagnosis (1) COPD exacerbation Current Visit: Yes Status: Acute Base Code: J44.1 - CHRONIC OBSTRUCTIVE PULMONARY DISEASE W (ACUTE) EXACERBATION Comment: 06/18/16: 81 yo female w/ alzheimers type dementia admitted for COPD exac w/ positive influenza B. H/o COPD, previous smoker and hx of PNA. CXR NAP. WBC normal. afebrile. Significant clinical improvement - DC home today in the care of her daughter - Home O2 qualifier completed, SPO2 84% at rest on room air - Home O2 to be arranged for 13/10 use (has never used before) - Duo neb breathing treatments Q6 hours WA - Tamiflu 30 mg BID to complete 5 day treatment - Prednisone 40mg QD x 5 days - Follow up PCP in 2 weeks (2) Influenza B Current Visit: Yes Status: Acute Base Code: J10.1 - FLU DUE TO OTH IDENT INFLUENZA VIRUS W OTH RESP MANIFEST Comment: 06/18/16: Significant clinical improvement - will continue Tamiflu 30mg BID for total 5 day treatment - follow up PCP in 2 weeks (3) Alzheimer's dementia Current Visit: Yes Status: Chronic Base Code: G30.9 - ALZHEIMER'S DISEASE , UNSPECIFIED Comment: 06/18/16: mentation at baseline per daughter. continue home medication. no adverse cognitive effects during visit. Discharge home to the care of her daughter (4) DVT prophylaxis Current Visit: Yes Status: Acute Base Code: [id number] - Comment: 06/18/16: age, decreased mobility. lovenox 40 mg sq daily during hospitalization (5) Full code status Current Visit: Yes Status: Acute Base Code: Z78.9 - OTHER SPECIFIED HEALTH STATUS Comment: 06/18/16: patient is full code during this hospitalization - Hospitalization Course Disposition: Home, Self-Care Hospital Course: 81 yo female admitted COPD exacerbation due to influenza B virus. PMHx of Alzheimer's type dementia, COPD, previous smoker (quit many years ago), high cholesterol, hypertension, TIA, CVA, and h/o PNA. History obtained from chart, patient and daughter at bedside. Per patient's daughter, patient has been experiencing a non productive cough. Onset was last . No aggravating symptoms. Alleviated by breathing treatment in the ED and supplemental O2. Associated symptoms include KINA w/ activity. Upon presentation to the ED, temp 98.8, HR 88, RR 48, BP 124/72, pulse ox 83 on RA. CBC normal. BUN 23, CE negative x1. Influenza B positive, CXR: NAP. IVF's , Duo neb treatment Q6 hours and albuterol Q1 hours ordered. Tamiflu ordered. Noting hypoxia and positive influenza B, patient admitted for further medical management. Patient sitting up in bed comfortably eating lunch with her daughter at bedside. States "i'm starving. She does not appear to be having any respiratory difficulty. +chills, fatigue. denies weakness, KINA, fever, nvd, abd pain, change in bowel habits, pain with urination, skin changes, sweating, or change in gait. Daughter denies any change in mentation. Admitted in March for COPD exacerbation. No other recent illness. no recent travel or sick contacts. Lives with her daughter here in [place]. Spiriva is on patient's medication list. Does not have a electrophysiology scientist. PCP: Dr. Willis Abnormal Labs: Abnormal Lab Results 06/17/16 Range/Units 06:20 BUN 23 H (7-17) mg/dL Random Glucose 140 H (70-110) mg/dL Calcium 8.4 L (8.5-10.1) mg/dL Condition at Discharge: (2) Stable Discharge Medications - Discharge Medications Prescriptions: Ipratropium/Albuterol [Duoneb] 3 ml INH RESP.Q6H.[place] #120 ampul.neb Prednisone [Prednisone 20Mg] 40 mg PO DAILYWM #10 tab Home Medications: Ambulatory Orders Atorvastatin Calcium [Lipitor] 10 mg PO DAILY 01/19/14 [Last Taken 04/09/16] Donepezil HCl 10 mg PO QHS 01/19/14 [Last Taken 04/09/16] Folic Acid 1 mg PO QHS 01/19/14 [Last Taken 04/09/16] Memantine HCl [Namenda Xr] 28 mg PO QHS 01/19/14 [Last Taken 04/09/16] Aspirin [Adult Low Dose Aspirin EC] 81 mg PO DAILY 04/10/16 [Last Taken 04/10/16 ] Cholecalciferol (Vitamin D3) [Vitamin D3] 2,000 unit PO DAILY 04/10/16 [Last Taken 04/10/16] Tiotropium [place] [Spiriva] 1 cap IH DAILY 04/10/16 [Last Taken 06/15/16 11:00] Albuterol Sulfate [Proair Hfa] 1 - 2 puff IH .EVERY 4-6 HOURS PRN #1 inhaler [Last Taken 06/16/16] Ipratropium/Albuterol [Duoneb] 3 ml INH RESP.Q6H.[place] #120 ampul.neb 06/18/16 [ Last Taken Unknown] Prednisone [Prednisone 20Mg] 40 mg PO DAILYWM #10 tab 06/18/16 [Last Taken Unknown] Discharge Plan - Discharge Instructions Activity at Discharge: Increase Activity as Tolerated, Wear Oxygen At All Times , Wear Oxygen At Night Diet at Discharge: Advance to Usual Diet Instructions: Influenza (DC), Chronic Obstructive Pulmonary Disease (DC) Additional Instructions: 2 Activity: TOLERATED 2 Diet: TOLERATED 2 Consults: [] 2 Follow Up: []WITH DR WILLIS IN 2 WEEKS 2 Dressing/Wound Care: (Type) (Change) 2 Additional: [] TAKE PREDNISONE PRESCRIBED USE NEBULIZER PRESCRIBED WEAR HOME OXYGEN
[2016-06-18] MEDS ORDERED: PREDNISONE 20 MG TAB PO SCH (12:00)
[2016-06-18] MEDS: METHYLPREDNISOLONE PF 125MG/VIAL IVP SCH (12:07)
== END 2016-06-18 13:55 | disposition home or self-care (01) | DRG 192 ==
LOC: ER 11:30 → MEDSURG 14:00
PROVIDERS: ADMIT Family Medicine; ATTEND Family Medicine
DX: J44.1 Chronic obstructive pulmonary disease with (acute) exacerbation (principal); J10.1 Influenza due to other identified influenza virus with other respiratory manifestations; G30.9 Alzheimer's disease, unspecified; F02.80 Dementia in other diseases classified elsewhere, unspecified severity, without behavioral disturbance, psychotic disturbance, mood disturbance, and anxiety; E78.00 Pure hypercholesterolemia, unspecified; I10 Essential (primary) hypertension; Z78.9 Other specified health status
CPT/HCPCS: 71020; 80048; 80053; 84484; 85025; 87400; 90670; 93041; 94620; 94760; 94761; 96374; 99223; 99233; 99239; 99285; J1650; J2930; J7512